=== PATIENT | female | born 1955 | race Two or more races ===

== ENCOUNTER → 2017-07-12 11:22 | Outpatient (CLI) | payer OTHER ==
[~2017-07-12 11:22] MED LIST: AMBIEN10 MG PO; CIPRO500 MG PO; COREG 6.25 MG PO; COREG CR10 MG; COREG CR10 MG PO; GILTUSS TR TAB1 EACH PO; MICARDIS HCT 81 EAC1; MICARDIS80 MG; MICARDIS80 MG PO; SYNTHROID75 MCG; SYNTHROID75 MCG PO; TESSALON PERLE100 MG PO; VOLTAREM 50 MG PO; ZYRTEC10 MG PO
== END | disposition home or self-care (01) ==
LOC: PPHC 11:22
DX: Z00.00 Encounter for general adult medical examination without abnormal findings (principal); Z76.0 Encounter for issue of repeat prescription; Z80.8 Family history of malignant neoplasm of other organs or systems

== ENCOUNTER → 2017-07-12 13:50 | Outpatient (CLI) | payer OTHER | END | disposition home or self-care (01) | LOC: LAB 13:50 | DX: Z00.00 Encounter for general adult medical examination without abnormal findings (principal); I10 Essential (primary) hypertension; E03.8 Other specified hypothyroidism ==

== ENCOUNTER 2017-07-12 15:38 | Outpatient (CLI) | payer OTHER | END 2017-07-12 15:42 | disposition home or self-care (01) | LOC: SONOGRAMA 15:38 | DX: Z80.9 Family history of malignant neoplasm, unspecified (principal) ==

== ENCOUNTER → 2017-07-19 15:04 | Outpatient (CLI) | payer OTHER ==
[~2017-07-19] VITALS: Ht 152.4 cm; Wt 77.1 kg
== END | disposition home or self-care (01) ==
LOC: PPHC 15:04
DX: H10.33 Unspecified acute conjunctivitis, bilateral (principal)

== ENCOUNTER → 2017-11-25 09:01 | Outpatient (CLI) | payer OTHER | END | disposition home or self-care (01) | LOC: LAB 09:01 | DX: I10 Essential (primary) hypertension (principal); E03.9 Hypothyroidism, unspecified; Z12.31 Encounter for screening mammogram for malignant neoplasm of breast ==

== ENCOUNTER 2017-11-25 10:26 | Outpatient (CLI) | payer OTHER | END 2017-11-25 11:13 | disposition home or self-care (01) | LOC: MAMO-SONO 10:26 | DX: Z12.31 Encounter for screening mammogram for malignant neoplasm of breast (principal); I10 Essential (primary) hypertension; E03.8 Other specified hypothyroidism ==

== ENCOUNTER 2018-01-09 07:54 | Outpatient (CLI) | payer OTHER | END 2018-01-09 07:58 | disposition home or self-care (01) | LOC: SONOGRAMA 07:54 | DX: E04.2 Nontoxic multinodular goiter (principal) ==

== ENCOUNTER 2018-02-20 07:21 | Outpatient (CLI) | payer OTHER | END 2018-02-20 16:43 | disposition home or self-care (01) | LOC: LAB 07:21 | DX: Z00.00 Encounter for general adult medical examination without abnormal findings (principal) ==

== ENCOUNTER 2018-03-03 12:27 | Outpatient (CLI) | payer OTHER | END 2018-03-03 12:49 | disposition home or self-care (01) | LOC: SONOGRAMA 12:27 | DX: N60.11 Diffuse cystic mastopathy of right breast (principal); N60.12 Diffuse cystic mastopathy of left breast ==